=== PATIENT | male | born 1950 | race Two or more races ===

== ENCOUNTER 2020-03-17 14:35 | Inpatient (IN) | payer OTHER ==
[~2020-03-17] VITALS: Ht 177.8 cm; Wt 60.8 kg
[2020-03-25] MEDS ORDERED: IRON PO (14:34)
[2020-03-25] MEDS ORDERED: MULTIVITAMINS1 EAC9 PO (14:34)
[2020-03-25] MEDS ORDERED: FOLIC PO (14:35)
[2020-03-27] MEDS ORDERED: IRON236 MG PO (09:08)
[2020-03-27] MEDS ORDERED: FOLIC ACID0.4 MG PO (09:08)
[2020-03-27] MEDS ORDERED: CIPRO500 MG PO (09:13)
[2020-04-02] MEDS ORDERED: FERROUS SULFAT325 MG PO (08:28)
[2020-04-02] MEDS ORDERED: VITAMIN B-121000 MCG PO (08:28)
[2020-04-05] MEDS ORDERED: PERCOCET 5-3251 EACH PO (14:24)
[2020-04-05] MEDS ORDERED: PRILOSEC OTC20 MG PO (14:24)
== END 2020-04-05 17:24 | disposition home or self-care (01) | DRG 330 ==
LOC: SURG 04-02 05:40 → O/R 04-02 05:40 → RECOVERY 04-02 11:15 → SURG 04-02 11:50 → RECOVERY 04-02 12:15 → SURG 04-05 17:24
PROVIDERS: ADMIT Colon & Rectal Surgery; ATTEND Colon & Rectal Surgery
PROC: 0D1B4Z4 Bypass Ileum to Cutaneous, Percutaneous Endoscopic Approach (ICD-10-PCS; principal; 2020-04-02 12:15)
PROC: 30233N1 Transfusion of Nonautologous Red Blood Cells into Peripheral Vein, Percutaneous Approach (ICD-10-PCS; 2020-04-03)
DX: C19 Malignant neoplasm of rectosigmoid junction (principal); N39.0 Urinary tract infection, site not specified; D64.9 Anemia, unspecified; R73.01 Impaired fasting glucose

== ENCOUNTER 2020-03-26 12:02 | Inpatient (IN) | payer OTHER ==
[~2020-03-26] VITALS: Ht 30.5 cm; Wt 5.0 kg
[~2020-03-26 12:02] MED LIST: FOLIC PO; IRON PO; MULTIVITAMINS1 EAC9 PO
[2020-03-27] MEDS ORDERED: FOLIC ACID0.4 MG PO (09:08)
[2020-03-27] MEDS ORDERED: IRON236 MG PO (09:08)
[2020-03-27] MEDS ORDERED: CIPRO500 MG PO (09:13)
== END 2020-03-27 10:59 | disposition home or self-care (01) | DRG 375 ==
LOC: SEC-K 12:02
PROVIDERS: ADMIT Internal Medicine Geriatric Medicine; ATTEND Internal Medicine Geriatric Medicine
PROC: 30233N1 Transfusion of Nonautologous Red Blood Cells into Peripheral Vein, Percutaneous Approach (ICD-10-PCS; principal; 2020-03-26)
DX: C20 Malignant neoplasm of rectum (principal); N39.0 Urinary tract infection, site not specified; D63.0 Anemia in neoplastic disease; Z20.828 Contact with and (suspected) exposure to other viral communicable diseases

== ENCOUNTER 2020-04-01 10:11 | Day surgery (SDC) | payer OTHER ==
[~2020-04-01 10:11] MED LIST changes: +CIPRO500 MG PO; +FOLIC ACID0.4 MG PO; +IRON236 MG PO
[2020-04-02] MEDS ORDERED: VITAMIN B-121000 MCG PO (08:28)
[2020-04-02] MEDS ORDERED: FERROUS SULFAT325 MG PO (08:28)
== END 2020-04-01 14:55 | disposition home or self-care (01) ==
LOC: AMB-ENDOS 10:11
PROVIDERS: ATTEND Colon & Rectal Surgery
DX: C20 Malignant neoplasm of rectum (principal); K64.1 Second degree hemorrhoids; Z20.828 Contact with and (suspected) exposure to other viral communicable diseases

== ENCOUNTER 2020-06-29 15:50 | Inpatient (IN) | payer OTHER ==
[~2020-06-29] VITALS: Ht 177.8 cm; Wt 53.1 kg
[~2020-06-29 15:50] MED LIST changes: +FERROUS SULFAT325 MG PO; +PERCOCET 5-3251 EACH PO; +PRILOSEC OTC20 MG PO; +VITAMIN B-121000 MCG PO
[2020-06-29] MEDS ORDERED: VITAMIN D31250 MCG PO (16:02)
[2020-06-29] MEDS ORDERED: IRON236 MG (16:03)
[2020-06-29] MEDS ORDERED: [UNRECOGNIZED DRUG - OTHER] PO (16:03)
[2020-07-03] MEDS ORDERED: CIPRO500 MG PO (13:20)
[2020-07-03] MEDS ORDERED: PEPCID AC20 MG PO (13:20)
[2020-07-03] MEDS ORDERED: INTEGRA F CAPS1 EACH PO (13:20)
[2020-07-03] MEDS ORDERED: [UNRECOGNIZED DRUG - OTHER] PO (13:20)
[2020-07-03] MEDS ORDERED: ABANEU-SL TABL1 EACH SL (13:20)
[2020-07-03] MEDS ORDERED: FLAGYL500MG PO (13:20)
[2020-07-03] MEDS ORDERED: LOPERAMIDE2 MG PO (13:20)
[2020-07-03] MEDS ORDERED: INTESTINEX680 M1 PO (13:20)
== END 2020-07-03 15:36 | disposition home or self-care (01) | DRG 378 ==
LOC: ER 15:50 → SURH 19:00
PROVIDERS: ADMIT Internal Medicine Geriatric Medicine; ATTEND Internal Medicine Geriatric Medicine
PROC: 8E0ZXY6 Isolation (ICD-10-PCS; principal; 2020-06-29)
PROC: 3E0F7SF Introduction of Other Gas into Respiratory Tract, Via Natural or Artificial Opening (ICD-10-PCS; 2020-06-29)
PROC: 30233N1 Transfusion of Nonautologous Red Blood Cells into Peripheral Vein, Percutaneous Approach (ICD-10-PCS; 2020-06-30)
DX: K62.5 Hemorrhage of anus and rectum (principal); C20 Malignant neoplasm of rectum; N39.0 Urinary tract infection, site not specified; C78.00 Secondary malignant neoplasm of unspecified lung; D64.9 Anemia, unspecified; Z20.828 Contact with and (suspected) exposure to other viral communicable diseases

== ENCOUNTER 2020-09-19 07:39 | Day surgery (SDC) | payer OTHER ==
[~2020-09-19 07:39] MED LIST changes: +ABANEU-SL TABL1 EACH SL; +FLAGYL500MG PO; +INTEGRA F CAPS1 EACH PO; +INTESTINEX680 M1 PO; +IRON236 MG; +LOPERAMIDE2 MG PO; +PEPCID AC20 MG PO; +VITAMIN D31250 MCG PO; +[UNRECOGNIZED DRUG - OTHER] PO
== END 2020-09-19 14:00 | disposition home or self-care (01) ==
LOC: AMB-ENDOS 07:39
PROVIDERS: ATTEND Colon & Rectal Surgery
DX: K62.89 Other specified diseases of anus and rectum (principal); K64.2 Third degree hemorrhoids; Z20.822 Contact with and (suspected) exposure to COVID-19